=== PATIENT | male | born 1990 | race Caucasian/White ===

== ENCOUNTER 2017-04-25 11:37 | Emergency (ER) | payer SELFPAY ==
[~2017-04-25] VITALS: Ht 172.7 cm; Wt 65.0 kg
[~2017-04-25 11:37] MED LIST: CLIN150 PO; LANTUSP SQ; NOVOLOGSS SC; PERC10TA26 PO; TRAM50 PO
[2017-04-25 11:48] VITALS: BP 107/79; PULSE 117; RESP 18; TEMP 98.4; O2SAT 96
[2017-04-25 13:40] LABS: AUTOMATED NEUTROPHIL # 7.7 TH/MM3 (1.8-7.7); BASOPHIL # 0.1 TH/MM3 (0-0.2); BASOPHIL % 0.7 % (0.0-2.0); EOSINOPHIL # 0.1 TH/MM3 (0-0.4); HEMATOCRIT 43.1 % (39.0-51.0); HEMOGLOBIN 14.9 GM/DL (13.0-17.0); LYMPHOCYTE # 1.4 TH/MM3 (1.0-4.8); MEAN CELL VOLUME 88.4 FL (80.0-100.0); MEAN CORPUSCULAR HEMOGLOBIN 30.5 PG (27.0-34.0); MEAN CORPUSCULAR HGB CONC 34.5 % (32.0-36.0); MEAN PLATELET VOLUME 6.9 FL (7.0-11.0); MONO % 7.6 % (0.0-8.0); MONOCYTE # 0.8 TH/MM3 (0-0.9); NEUT % 76.7 % (16.0-70.0); PLATELET COUNT 365 TH/MM3 (150-450); RED BLOOD COUNT 4.88 MIL/MM3 (4.50-5.90)
[2017-04-25 13:57] LABS: AST (GOT) 23 U/L (15-37); BICARBONATE 25.5 MEQ/L (21.0-32.0); BLOOD UREA NITROGEN 24 MG/DL (7-18); CALCIUM 10.5 MG/DL (8.5-10.1); CHLORIDE 99 MEQ/L (98-107); CREATININE 1.23 MG/DL (0.60-1.30); GLOMERULAR FILTRATION RATE 72 ML/MIN (>89); GLUCOSE,RANDOM 226 MG/DL (74-106); SODIUM (NA) 134 MEQ/L (136-145)
[2017-04-25 13:59] LABS: ALKALINE PHOSPHATASE 183 U/L (45-117); ALT (GPT) 32 U/L (12-78); TOTAL BILIRUBIN ADULT 2.7 MG/DL (0.2-1.0); TOTAL PROTEIN 9.6 GM/DL (6.4-8.2)
--- NOTE | 2017-06-04 14:04 | PD ---
Physical Exam Date Seen by Provider: Apr 25, 2016 Time Seen by Provider: 12:00 Narrative 26-year-old male previously triaged, with protocol labs ordered by the triage nurse, was placed in the room, with complaints of laceration to left thumb with localized cellulitis and abscess. When I went to the room, patient had already eloped, and was deemed an AMA. I never actually saw the patient. Data Data Orders Orders Complete Blood Count With Diff (04/25/17 12:33) Comprehensive Metabolic Panel (04/25/17 12:33) Blood Culture (04/25/17 12:33) Lactic Acid (04/25/17 12:33) Labs Laboratory Tests Test 04/25/17 13:00 White Blood Count 10.0 TH/MM3 Red Blood Count 4.88 MIL/MM3 Hemoglobin 14.9 GM/DL Hematocrit 43.1 % Mean Corpuscular Volume 88.4 FL Mean Corpuscular Hemoglobin 30.5 PG Mean Corpuscular Hemoglobin Concent 34.5 % Red Cell Distribution Width 14.0 % Platelet Count 365 TH/MM3 Mean Platelet Volume 6.9 FL Neutrophils (%) (Auto) 76.7 % Lymphocytes (%) (Auto) 14.0 % Monocytes (%) (Auto) 7.6 % Eosinophils (%) (Auto) 1.0 % Basophils (%) (Auto) 0.7 % Neutrophils # (Auto) 7.7 TH/MM3 Lymphocytes # (Auto) 1.4 TH/MM3 Monocytes # (Auto) 0.8 TH/MM3 Eosinophils # (Auto) 0.1 TH/MM3 Basophils # (Auto) 0.1 TH/MM3 CBC Comment DIFF FINAL Differential Comment Blood Urea Nitrogen 24 MG/DL Creatinine 1.23 MG/DL Random Glucose 226 MG/DL Total Protein 9.6 GM/DL Albumin 5.0 GM/DL Calcium Level 10.5 MG/DL Alkaline Phosphatase 183 U/L Aspartate Amino Transf (AST/SGOT) 23 U/L Alanine Aminotransferase (ALT/SGPT) 32 U/L Total Bilirubin 2.7 MG/DL Sodium Level 134 MEQ/L Potassium Level 4.1 MEQ/L Chloride Level 99 MEQ/L Carbon Dioxide Level 25.5 MEQ/L Anion Gap 10 MEQ/L Estimat Glomerular Filtration Rate 72 ML/MIN Lactic Acid Level 2.0 mmol/L [facility] Medical Record Reviewed: Yes Supervised Visit with MYRA: Yes Narrative Course 26-year-old male previously triaged, with protocol labs ordered by the triage nurse, was placed in the room, with complaints of laceration to left thumb with localized cellulitis and abscess. When I went to the room, patient had already eloped, and was deemed an AMA. I never actually saw the patient. Patient Instructions: General Instructions Departure Forms: Tests/Procedures Disposition: 07 AGAINST MEDICAL ADVICE Condition: Stable Justyn Hunter Jun 04, 2017 14:04
== END 2017-04-25 17:48 | disposition left against medical advice (07) ==
LOC: NEPD 11:37
DX: S61.219A Laceration without foreign body of unspecified finger without damage to nail, initial encounter (principal); Z53.21 Procedure and treatment not carried out due to patient leaving prior to being seen by health care provider; X58.XXXA Exposure to other specified factors, initial encounter
CPT/HCPCS: 80053; 83605; 85025; 87040; 99281